=== PATIENT | male | born 1990 | race African-American/Black ===

== ENCOUNTER 2018-05-08 12:04 | Emergency (ER) | payer OTHER ==
[~2018-05-08] VITALS: Ht 172.7 cm; Wt 72.6 kg
[2018-05-08 11:55] VITALS: BP 130/85
[~2018-05-08 12:04] MED LIST: MECLIZINE HCL25 MG ORAL
[2018-05-08] MEDS ORDERED: DiphenhydrAMINE 50mg/ml Inj IVP ONE (12:30)
[2018-05-08] MEDS ORDERED: Haloperidol 5mg/ml Inj IM ONE (12:30)
[2018-05-08 12:47] LABS: APPEARANCE,URINE CLEAR; BILIRUBIN, URINE NEGATIVE (NEGATIVE); COLOR,URINE PALE YELLOW; GLUCOSE, URINE (UA) NEGATIVE (NEGATIVE); KETONES,URINE NEGATIVE (NEGATIVE); LEUKOCYTE ESTERASE ,URINE NEGATIVE (NEGATIVE); NITRITE,URINE NEGATIVE (NEGATIVE); PH,URINE 6 (4.5-8.0); PROTEIN,URINE NEGATIVE (NEGATIVE); UROBILINOGEN,URINE NORMAL MG/DL (0.0-1.0)
--- NOTE | 2018-05-08 12:48 | Diagnostic Imaging Report ---
EXAM: XR Right Hand Complete, 3 or More Views CLINICAL HISTORY: PAIN TECHNIQUE: Frontal, lateral and oblique views of the right hand. COMPARISON: No relevant prior studies available. FINDINGS: Bones/joints: Mildly displaced fracture of the fifth metacarpal distally, with mild volar tilt. 3 mm well-corticated ossific body dorsal to the carpometacarpal junctions on the lateral view. Soft tissues: Dorsal soft tissue swelling overlying the hand. No radiopaque foreign body. IMPRESSION: 1. Mildly displaced fracture of the fifth metacarpal distally, with mild volar tilt. 2. 3 mm well-corticated ossific body dorsal to the carpometacarpal junctions on the lateral view, likely representing a small accessory ossicle or sequela of remote trauma. 3. Dorsal soft tissue swelling overlying the hand.
[2018-05-08 12:50] LABS: BASOPHILS % (AUTO) 0.5 % (0.0-2.0); EOSINOPHILS % (AUTO) 0.3 % (0.0-3.0); HEMATOCRIT 46.5 % (42.0-52.0); HEMOGLOBIN 15.4 G/DL (14.2-18.0); MEAN CORPUSCULAR VOLUME 89 FL (80-99); MONOCYTES % (AUTO) 6.7 % (1.0-10.0); NEUTROPHILS % (AUTO) 75.5 % (45.0-75.0); PLATELET COUNT 287 K/UL (150-450); RED BLOOD COUNT 5.25 M/UL (4.70-6.10); RED CELL DISTRIBUTION WIDTH 12.3 % (11.6-14.8); WHITE BLOOD COUNT 11.3 K/UL (4.8-10.8)
[2018-05-08 13:02] LABS: ANION GAP 6 mmol/L (5-15); BLOOD UREA NITROGEN 8 mg/dL (7-18); CALCIUM 9.4 MG/DL (8.5-10.1); CARBON DIOXIDE 29 MMOL/L (21-32); CHLORIDE 103 MMOL/L (98-107); CREATININE 1.1 MG/DL (0.55-1.30); POTASSIUM 4.3 MMOL/L (3.5-5.1); SODIUM 138 MMOL/L (136-145)
[2018-05-08 13:06] LABS: ALANINE AMINOTRANSFERASE 32 U/L (12-78); ALBUMIN 4.3 G/DL (3.4-5.0); ALBUMIN/GLOBULIN RATIO 1.3 (1.0-2.7); ALKALINE PHOSPHATASE 87 U/L (46-116); ASPARTATE AMINO TRANSFERASE 55 U/L (15-37); BILIRUBIN,TOTAL 0.4 MG/DL (0.2-1.0)
[2018-05-08 14:01] VITALS: BP 130/80
[2018-05-08] MEDS ORDERED: Morphine Sulfate 4mg/ml Inj (IV USE ONLY) IVP ONE (14:15)
[2018-05-08] MEDS ORDERED: Lidocaine 1% Plain 30 ml INJ ONE (14:30)
--- NOTE | 2018-05-08 15:09 | Emergency Room Report ---
History of Present Illness General Chief Complaint: Behavioral Complaint Source: Patient Present Illness HPI 27-year-old male patient presents the ER brought in by ambulance on a 5150 hold. Reports thoughts of hurting himself. Denies having a plan. EMS reports that he was being loud and shouting towards family members. Reports that he has right hand pain status post falling down with a closed fist onto the ground while attempting to punch the wall. Reports he is right-hand dominant. Reports history of boxer's fracture on right hand. Reports pain with movement. States has not been taking any medications, reports that he was told he has a history of schizophrenia and bipolar disease. Denies hearing voices at this time. Denies fever, chest pain, shortness of breath abdominal pain. Denies other aggravating or relieving factors. Denies drinking or drug use. Allergies: Coded Allergies: No Known Allergies (Unverified , 05/08/18) Patient History Past Medical History: see triage record Reviewed Nursing Documentation: PMH: Agreed; PSxH: Agreed Review of Systems All Other Systems: negative except mentioned in HPI Physical Exam Vital Signs Date Time Temp Pulse Resp B/P (MAP) Pulse Ox O2 Delivery O2 Flow Rate FiO2 05/08/18 11:46 98.2 100 22 136/90 100 Room Air 05/08/18 11:55 100 Sp02 EP Interpretation: reviewed, normal General Appearance: well appearing, no apparent distress, alert, GCS 15, non- toxic Head: normocephalic, atraumatic Eyes: bilateral eye normal inspection, bilateral eye PERRL ENT: hearing grossly normal, normal pharynx, no angioedema, normal voice, uvula midline, moist mucus membranes Neck: full range of motion Respiratory: lungs clear, normal breath sounds, no rhonchi, no respiratory distress, no accessory muscle use, no wheezing, speaking full sentences Cardiovascular #1: regular rate, rhythm, no edema Cardiovascular #2: 2+ radial (R), 2+ radial (L) Gastrointestinal: non tender, soft, no mass, non-distended, no guarding, no rebound Musculoskeletal: back normal, digits/nails normal, gait/station normal, normal range of motion - right wrist, decreased range of motion - right hand, other - deformity of right hand distal phalanx, NVI, cap refill <2seconds, no snuffbox tenderness, tender - right distal fifth metacarpal Neurologic: alert, oriented x3, responsive, motor strength/tone normal, sensory intact Psychiatric: anxious Skin: no rash Procedures Joint Reduction Joint Reduction : Consent: Verbal Joint Reduction Site: other - Right hand fifth metacarpal Procedural Sedation: Yes - Hematoma block Reduction Attempts: One Pre-Procedure NV Exam: Yes Post-Procedure NV Exam: Yes Post Joint Reduction Film: joint reduced Patient Tolerated: Well Complications: None Medical Decision Making PA Attestation Dr. Delarosa is my supervising Physician whom patient management has been discussed with. Diagnostic Impression: Primary Impression: Suicidal behavior Additional Impression: Fracture of fifth metacarpal bone ER Course Pt. presents to the ED c/o behavioral disorder and right hand pain. Ddx considered but are not limited to anxiety, depression, drug use, alcohol use , behavioral disorder, fracture, contusion, dislocation. Vital signs: are WNL, pt. is afebrile Ordered labs, urine drug screen, serum alcohol. ER COURSE: Patient abrasive, believe patient requires, sedation at this time, provide with Haldol and Benadryl in the ER. CBC and CMP unremarkable, mild elevation WBC is likely related pain. no electrolyte abnormalities. UA negative. Urine drug screen positive for benzos and marijuana, remainder negative. Physical exam shows deformity of right hand, ordered x-ray, showing right hand distal metacarpal fracture, ordered pain medication and lidocaine. Hematoma block performed with the supervision of Dr. Todd at bedside. Single attempt of reduction performed in the ER. Patient tolerated procedure well without complications. Post reduction x-rays showed: 1. Nondisplaced fracture of the distal fifth metacarpal, with improved angulation and near anatomic alignment. 2. Dorsal soft tissue swelling overlying the hand. 3. Unchanged 3-4 mm well-corticated ossific body adjacent to the fifth carpometacarpal joint, likely a small accessory ossicle or sequelae of remote trauma. Informed patient needs ortho follow-up and referral. Patient placed in a volar splint with good alignment and neurovascularly intact. Patient resting comfortably in no acute distress, nontoxic appearing. Patient medically cleared. Patient to be transferred to [facility] psychiatric facility. - Please note that this Emergency Department Report was dictated using [employer] carpenter technology software, occasionally this can lead to erroneous entry secondary to interpretation by the dictation equipment. [employer] Labs Test 05/08/18 12:31 White Blood Count 11.3 K/UL (4.8-10.8) Red Blood Count 5.25 M/UL (4.70-6.10) Hemoglobin 15.4 G/DL (14.2-18.0) Hematocrit 46.5 % (42.0-52.0) Mean Corpuscular Volume 89 FL (80-99) Mean Corpuscular Hemoglobin 29.3 PG (27.0-31.0) Mean Corpuscular Hemoglobin Concent 33.1 G/DL (32.0-36.0) Red Cell Distribution Width 12.3 % (11.6-14.8) Platelet Count 287 K/UL (150-450) Mean Platelet Volume 5.7 FL (6.5-10.1) Neutrophils (%) (Auto) 75.5 % (45.0-75.0) Lymphocytes (%) (Auto) 17.0 % (20.0-45.0) Monocytes (%) (Auto) 6.7 % (1.0-10.0) Eosinophils (%) (Auto) 0.3 % (0.0-3.0) Basophils (%) (Auto) 0.5 % (0.0-2.0) Urine Color Pale yellow Urine Appearance Clear Urine pH 6 (4.5-8.0) Urine Specific [place] 1.015 (1.005-1.035) Urine Protein Negative (NEGATIVE) Urine Glucose (UA) Negative (NEGATIVE) Urine Ketones Negative (NEGATIVE) Urine Blood Negative (NEGATIVE) Urine Nitrite Negative (NEGATIVE) Urine Bilirubin Negative (NEGATIVE) Urine Urobilinogen Normal MG/DL (0.0-1.0) Urine Leukocyte Esterase Negative (NEGATIVE) Sodium Level 138 MMOL/L (136-145) Potassium Level 4.3 MMOL/L (3.5-5.1) Chloride Level 103 MMOL/L (98-107) Carbon Dioxide Level 29 MMOL/L (21-32) Anion Gap 6 mmol/L (5-15) Blood Urea Nitrogen 8 mg/dL (7-18) Creatinine 1.1 MG/DL (0.55-1.30) Estimat Glomerular Filtration Rate > 60 mL/min (>60) Glucose Level 99 MG/DL (74-106) Calcium Level 9.4 MG/DL (8.5-10.1) Total Bilirubin 0.4 MG/DL (0.2-1.0) Aspartate Amino Transf (AST/SGOT) 55 U/L (15-37) Alanine Aminotransferase (ALT/SGPT) 32 U/L (12-78) Alkaline Phosphatase 87 U/L (46-116) Total Protein 7.7 G/DL (6.4-8.2) Albumin 4.3 G/DL (3.4-5.0) Globulin 3.4 g/dL Albumin/Globulin Ratio 1.3 (1.0-2.7) Salicylates Level 2.9 ug/mL (2.8-20) Urine Opiates Screen Negative (NEGATIVE) Acetaminophen Level < 2 MCG/ML (10-30) Urine Barbiturates Screen Negative (NEGATIVE) Phencyclidine (PCP) Screen Negative (NEGATIVE) Urine Amphetamines Screen Negative (NEGATIVE) Urine Benzodiazepines Screen Positive (NEGATIVE) Urine Cocaine Screen Negative (NEGATIVE) Urine Marijuana (THC) Screen Positive (NEGATIVE) Serum Alcohol 3 mg/dL Other X-Ray Diagnostic Results Other X-Ray Diagnostic Results #1: X-Ray ordered: right hand # of Views/Limited Vs Complete: 3 View Indication: Pain EP Interpretation: Yes PA Xray: Interpretation reviewed Interpretation: no dislocation, no soft tissue swelling Impression: Other PA Scribe Text Jay Walker PA-C Other X-Ray Diagnostic Results #2: X-Ray ordered: right hand post reduction # of Views/Limited Vs Complete: 3 View Indication: Pain EP Interpretation: Yes PA Xray: Interpretation reviewed Interpretation: no dislocation Impression: Other PA Scribe Text Jay Walker PA-C Last Vital Signs Date Time Temp Pulse Resp B/P (MAP) Pulse Ox O2 Delivery O2 Flow Rate FiO2 05/08/18 14:49 98.1 05/08/18 14:01 60 18 130/80 100 Room Air 100 Status: improved Disposition: XFER TO PSYCH HOSP/UNIT Condition: Stable Referrals: [facility],REFERRING (PCP) Eduardo Walker May 08, 2018 15:09
--- NOTE | 2018-05-08 15:39 | Diagnostic Imaging Report ---
EXAM: XR Right Hand Complete, 3 or More Views CLINICAL HISTORY: POST-OP TECHNIQUE: Frontal, lateral and oblique views of the right hand. COMPARISON: Right hand x-rays obtained earlier the same date FINDINGS: Bones/joints: Nondisplaced fracture of the distal fifth metacarpal, with improved angulation and near anatomic alignment. Unchanged 3-4 mm well-corticated ossific body adjacent to the fifth carpometacarpal joint, likely a small accessory ossicle or sequelae of remote trauma. No other fracture or dislocation identified. Soft tissues: There are. Tissue swelling overlying the hand. No radiodense foreign bodies. No soft tissue gas lucencies. IMPRESSION: 1. Nondisplaced fracture of the distal fifth metacarpal, with improved angulation and near anatomic alignment. 2. Dorsal soft tissue swelling overlying the hand. 3. Unchanged 3-4 mm well-corticated ossific body adjacent to the fifth carpometacarpal joint, likely a small accessory ossicle or sequelae of remote trauma.
[2018-05-08 16:56] VITALS: BP 108/73
== END 2018-05-08 16:58 ==
LOC: EDBD 12:04 → EMR 13:50
DX: R45.851 Suicidal ideations (principal); S62.306A Unspecified fracture of fifth metacarpal bone, right hand, initial encounter for closed fracture; W19.XXXA Unspecified fall, initial encounter; Y92.89 Other specified places as the place of occurrence of the external cause; Y99.9 Unspecified external cause status
CPT/HCPCS: 26605; 36415; 73130; 80053; 80307; 80329; 81003; 85025; 96361; 96372; 96374; 96375; 99285; J1200; J1630; J2001; J2270; Z7502

== ENCOUNTER 2018-05-13 12:40 | Emergency (ER) | payer OTHER ==
[~2018-05-13] VITALS: Ht 177.8 cm; Wt 69.9 kg
--- NOTE | 2018-05-13 13:01 | NUR ---
called -not in waiting room
--- NOTE | 2018-05-13 13:14 | NUR ---
not in the room
--- NOTE | 2018-05-13 13:34 | NUR ---
not in room
[2018-05-13] MEDS ORDERED: NKM (13:46)
[2018-05-13 13:50] VITALS: BP 116/78
--- NOTE | 2018-05-13 13:50 | NUR ---
ED Nurse Note: pt walked in c/o itching and recheck on splint on right hand, noted splint in right hand-arm, cms intact, mild swelling noted on right hand, cap refill <3sec. will cont monitor.
--- NOTE | 2018-05-13 14:59 | Emergency Room Report ---
History of Present Illness General Chief Complaint: Wound Recheck/Suture Removal Source: Patient Present Illness HPI 27-year-old male presents to the emergency department requesting basement of his right hand splint. Patient was seen here in the emergency department last week for boxer's fracture. Patient states that his splint got wet and is now deformed. Patient reports 7/10 in severity pain at this time, he also states he has not followed up with orthopedic yet. Other aggravating or alleviating factors. Pt. is right hand dominant, denies paresthesias. Allergies: Coded Allergies: No Known Allergies (Unverified , 05/08/18) Patient History Past Medical History: see triage record Past Surgical History: none Pertinent Family History: none Immunizations: UTD Reviewed Nursing Documentation: PMH: Agreed; PSxH: Agreed Nursing Documentation-PMH Past Medical History: No Stated History Review of Systems All Other Systems: negative except mentioned in HPI Physical Exam Vital Signs Date Time Temp Pulse Resp B/P (MAP) Pulse Ox O2 Delivery O2 Flow Rate FiO2 05/13/18 13:43 97.5 110 17 124/80 99 Room Air Sp02 EP Interpretation: reviewed, normal General Appearance: no apparent distress, alert, GCS 15, non-toxic Head: normocephalic, atraumatic Eyes: bilateral eye normal inspection, bilateral eye PERRL ENT: hearing grossly normal, normal voice Neck: full range of motion Respiratory: lungs clear, normal breath sounds, speaking full sentences Cardiovascular #1: regular rate, rhythm, normal capillary refill Musculoskeletal: back normal, gait/station normal, normal range of motion, other - poor-fitting ulnar gutter splint that is soggy noted, no evidence of circulatory compromise or pain out of proportion on exam Neurologic: alert, oriented x3, responsive, motor strength/tone normal, sensory intact, speech normal, grossly normal Psychiatric: judgement/insight normal Skin: normal color, no rash, warm/dry, well hydrated Lymphatic: no adenopathy Medical Decision Making PA Attestation Dr. huston is my supervising Physician whom patient management has been discussed with. Diagnostic Impression: Primary Impression: Boxers fracture Qualified Codes: S62.339D - Displaced fracture of neck of unspecified metacarpal bone, subsequent encounter for fracture with routine healing ER Course 27-year-old male presents to the emergency department requesting basement of his right hand splint. Patient was seen here in the emergency department last week for boxer's fracture. Patient states that his splint got wet and is now deformed. Patient reports 7/10 in severity pain at this time, he also states he has not followed up with orthopedic yet. Other aggravating or alleviating factors. Pt. is right hand dominant, denies paresthesias. Ddx considered but are not limited to Fracture, dislocation, contusion, Sprain/ Strain/Spasm, Vital signs: are WNL, pt. is afebrile H&PE are most consistent with musculoskeletal injury will perform imaging to r/ o fractures/dislocations. ORDERS: - none at this time no new trauma ED INTERVENTIONS: - Replaced splint with ulnar gutter. DISCHARGE: At this time pt. is stable for d/c to home. Will provide printed patient care instructions, and any necessary prescriptions. Care plan and follow up instructions have been discussed with the patient prior to discharge. Last Vital Signs Date Time Temp Pulse Resp B/P (MAP) Pulse Ox O2 Delivery O2 Flow Rate FiO2 05/13/18 13:43 97.5 110 17 124/80 99 Room Air Status: improved Disposition: HOME, SELF-CARE Condition: Stable Patient Instructions: Boxer's Fracture Additional Instructions: Take medications as directed. Follow up with an CLAIM PROCESSOR in 3-5 days, even if your symptoms have resolved. If symptoms persist MRI may be required at the discretion of your PCP or Ortho Specialist. --Please review list of primary care clinics, if you do not already have a primary care provider who can give you an Orthopedic Referral. Return sooner to ED if new symptoms occur, or current symptoms become worse. - Please note that this Emergency Department Report was dictated using [employer] clerk technology software, occasionally this can lead to erroneous entry secondary to interpretation by the dictation equipment. Evita Palm May 13, 2018 14:59
--- NOTE | 2018-05-13 15:02 | NUR ---
ED Nurse Note: pt cleared to be d/c per ER provider, pt discharge/aftercare instruction provided w/ prescription, pt education done via discussion and handout, pt advised to follow up with pcp/ortho or return to ed if sx worsen or new sx develop, pt verbalized understanding and agrees with plan. vss, airway intact, resp even and unlabored on RA, cms intact BUE, cap refill <3sec, all belongings left w/pt, splint done prior to dc by technical intern, intact.
[2018-05-13 15:03] VITALS: BP 116/74
== END 2018-05-13 15:03 | disposition home or self-care (01) ==
LOC: EMR 13:13
DX: S62.309D Unspecified fracture of unspecified metacarpal bone, subsequent encounter for fracture with routine healing (principal); X58.XXXD Exposure to other specified factors, subsequent encounter
CPT/HCPCS: 29125; 99283